=== PATIENT | female | born 1955 | race Caucasian/White ===

== ENCOUNTER 2017-11-28 09:56 | Observation (INO) | payer OTHER ==
[2017-11-28] MEDS ORDERED: NS 0.9% 1000 ML* 1,000 ML IV ONE (10:01)
--- NOTE | 2017-11-28 10:21 | RAD ---
HISTORY: Neurological changes, code rosenberg COMPARISONS: None TECHNIQUE: Multiple contiguous axial CT scans were obtained of the head without intravenous contrast. FINDINGS: HEMORRHAGE/INFARCT: There is no hemorrhage or acute infarct. MASSES/SHIFT: There is no mass or shift. EXTRA-AXIAL SPACES: There are no extra-axial fluid collections. SULCI AND VENTRICLES: The sulci and ventricles are normal in size and position for the patient's stated age. CEREBRUM: There are no focal parenchymal abnormalities. BRAINSTEM: There are no focal parenchymal abnormalities. CEREBELLUM: There are no focal parenchymal abnormalities. VESSELS: The vessels are grossly normal. PARANASAL SINUSES: The paranasal sinuses are clear. ORBITS: The orbits are unremarkable. BONES AND SOFT TISSUE: No bone or soft tissue abnormalities are noted. OTHER: None IMPRESSION: NO ACUTE INTRACRANIAL PATHOLOGY. PRELIMINARY FINDINGS WERE DISCUSSED WITH DR. RAMOS IN THE EMERGENCY DEPARTMENT AT APPROXIMATELY 10:17 AM ON NOVEMBER 28, 2017.
[2017-11-28 10:43] LABS: ABS Basophils 0.1 10^3/ul (0-0.2); ABS Eosinophils 0.2 10^3/ul (0-0.6); ABS Lymphocytes 2.1 10^3/ul (1.0-4.8); ABS Monocytes 0.5 10^3/ul (0-0.8); ABS Neutrophils 5.4 10^3/ul (1.5-7.7); ABS Nucleated RBC 0 10^3/ul; Eosinophil % 2.7 % (0-6); Hematocrit 43 % (35-47); Hemoglobin 14.6 g/dl (12.0-16.0); Lymphocyte % 25.4 % (25-47); Mean Corpuscular HGB Conc 34 g/dl (31-36); Mean Corpuscular Hemoglobin 29 pg (27-31); Mean Corpuscular Volume 85 fL (80-97); Nucleated Red Blood Cells % 0; Platelet Count 261 10^3/ul (150-450); Red Cell Distribution Width 14 % (10.5-15); White Blood Count 8.4 10^3/ul (3.5-10.8)
[2017-11-28 10:51] LABS: INR 1.23 (0.77-1.02)
[2017-11-28] MEDS ORDERED: Iohexol 350* (CONTRAST) 500 ML MDV IV ONE (11:22)
--- NOTE | 2017-11-28 11:29 | RAD ---
INDICATION: Neurologic change. Code bryson COMPARISON: November 12, 2015 TECHNIQUE: An AP portable view obtained at 1056 hours is submitted. FINDINGS: Bones/Soft Tissues: There are no acute bony findings. Cardiomediastinal: The correct silhouette is enlarged. There is mild vascular congestion with improvement Lungs: No focal consolidation. Pleura: There are no pleural effusions. Other: None IMPRESSION: ENLARGED CARDIAC SILHOUETTE. MILD VASCULAR CONGESTION WITH IMPROVEMENT.
[2017-11-28 11:36] LABS: Urine Appearance Clear; Urine Blood 1+ (Negative); Urine Color Straw; Urine Ketones Negative (Negative); Urine Protein Negative (Negative); Urine Specific Gravity 1.005 (1.010-1.030); Urine Urobilinogen Negative (Negative)
[2017-11-28] MEDS ORDERED: Carisoprodol TAB* 350 MG PO PRN (12:11)
[2017-11-28] MEDS ORDERED: traMADol TAB* 50 MG PO PRN (12:11)
--- NOTE | 2017-11-28 12:43 | RAD ---
HISTORY: Left-sided numbness COMPARISONS: Head CT dated November 28, 2017 TECHNIQUE: Multiple contiguous axial CT scans were obtained of the head and neck after the administration of nonionic intravenous contrast timed to the systemic arterial phase of contrast enhancement. Coronal and sagittal multiplanar reformations are submitted for review. Multiple 3-D maximum intensity projection reconstructions are also submitted for review. FINDINGS: CTA NECK: The study is limited by patient motion artifact. AORTIC ARCH: There is a normal three-vessel branching pattern of the aortic arch. There is no ostial or proximal stenosis of the cephalic great vessels. RIGHT VERTEBRAL ARTERY: The right vertebral artery is patent along its course, without stenosis. LEFT VERTEBRAL ARTERY: The left vertebral artery is patent along its course, without stenosis. DOMINANCE: The vertebral arteries are codominant. RIGHT COMMON CAROTID ARTERY: The right common carotid artery is patent. The right carotid bifurcation occurs at C3-C4. There is medial submucosal deviation of the right common carotid artery. RIGHT INTERNAL CAROTID ARTERY: There is atheromatous disease of the right carotid bifurcation, without right internal carotid artery stenosis by NASCET criteria. There is medial submucosal deviation of the proximal right internal carotid artery. RIGHT EXTERNAL CAROTID ARTERY: The right external carotid artery is unremarkable. LEFT COMMON CAROTID ARTERY: The left common carotid artery is patent. The left carotid bifurcation occurs at C3-C4. There is medial some mucosal deviation of the left common carotid artery. LEFT INTERNAL CAROTID ARTERY: There is atheromatous disease of the left carotid bifurcation, without left internal carotid artery stenosis by NASCET criteria. There is medial some mucosal deviation of the proximal left internal carotid artery. LEFT EXTERNAL CAROTID ARTERY: The left external carotid artery is unremarkable. VENOUS CIRCULATION: The venous system is unremarkable. SALIVARY GLANDS: The parotid glands, submandibular glands, sublingual glands are normal. NASAL CAVITY/NASOPHARYNX: The nasal cavity and nasopharynx are normal. ORAL CAVITY/OROPHARYNX: The oral cavity and oropharynx are unremarkable. LARYNGEAL APPARATUS/HYPOPHARYNX: The laryngeal apparatus and hypopharynx are normal. UPPER AIRWAY/UPPER ESOPHAGUS: The visualized upper airway and esophagus are normal. LUNG APICES: The lung apices are clear. THYROID GLAND: The thyroid gland is normal. LYMPH NODES: There is no lymphadenopathy by size criteria. BONES AND SOFT TISSUES: Degenerative changes are noted along the spine. CTA HEAD: INTRACRANIAL CIRCULATION: There is no aneurysm, vascular malformation, occlusion, or stenosis of the visualized intracranial circulation. The anterior communicating artery complex is clear. Bilateral posterior communicating arteries are identified. VENOUS CIRCULATION: The venous system is unremarkable. PERFUSION: There is no obvious parenchymal perfusion deficit. HEMORRHAGE/INFARCT: There is no hemorrhage or acute infarct. MASSES/SHIFT: There is no mass or shift. EXTRA-AXIAL SPACES: There are no extra-axial fluid collections. SULCI AND VENTRICLES: The sulci and ventricles are normal in size and position for the patient's stated age. CEREBRUM: There are no focal parenchymal abnormalities. BRAINSTEM: There are no focal parenchymal abnormalities. CEREBELLUM: There are no focal parenchymal abnormalities. PARANASAL SINUSES: The paranasal sinuses are clear. ORBITS: The orbits are unremarkable. BONES AND SOFT TISSUE: No bone or soft tissue abnormalities are noted. OTHER: There is no abnormal enhancement. IMPRESSION: 1. NO INTERNAL CAROTID ARTERY STENOSIS BY NASCET CRITERIA. 2. NO ANEURYSM, VASCULAR MALFORMATION, OCCLUSION, OR STENOSIS OF THE VISUALIZED INTRACRANIAL CIRCULATION.. CPT II Codes: 3100F
--- NOTE | 2017-11-28 15:30 | RAD ---
HISTORY: Stroke, left-sided weakness COMPARISONS: Head CT dated November 28, 2017, MRI dated August 16, 2010 TECHNIQUE: The following sequences were obtained of the head: Sagittal T1-weighted images, axial T2-weighted images, axial FLAIR images, axial susceptibility weighted images, axial T1-weighted images. Additionally, axial diffusion-weighted images were obtained with calculated apparent diffusion coefficients. FINDINGS: The study is technically limited secondary to patient body habitus. HEMORRHAGE/INFARCT: There is restricted diffusion consistent with subacute nonhemorrhagic infarct involving the precentral gyrus on the right measuring 1.1 cm in size. Elsewhere, there is no hemorrhage or acute infarct. MASSES/SHIFT: There is no mass or shift. EXTRA-AXIAL SPACES/MENINGES: There are no extra-axial fluid collections. SULCI AND VENTRICLES: The sulci and ventricles are normal in size and position for the patient's stated age. CEREBRUM: There is elevated T2/flair signal corresponding to the restricted diffusion within the right precentral gyrus. There is minimal encephalomalacia of the right precentral gyrus and left occipital lobe corresponding to the infarct described in 2009. BRAINSTEM: There are no focal parenchymal abnormalities. CEREBELLUM: There are no focal parenchymal abnormalities. The cerebellar tonsils are normal in size and position. SELLA: The sella is normal. PINEAL: The pineal region is clear. CP ANGLE/TEMPORAL BONES: The labyrinthine structures are grossly normal. VESSELS: Normal flow-voids are noted within the visualized vertebral vasculature. DIFFUSION ABNORMALITIES: As noted above, there is a focus of restricted diffusion within the precentral gyrus on the right on axial image 22. PARANASAL SINUSES/MASTOIDS: The paranasal sinuses are clear. ORBITS: The orbits are unremarkable. BONES AND SOFT TISSUE: No bone or soft tissue abnormalities are noted. OTHER: None IMPRESSION: THERE IS A SMALL FOCUS OF RESTRICTED DIFFUSION WITHIN THE CORTEX OF THE RIGHT PRECENTRAL GYRUS CONSISTENT WITH SUBACUTE NONHEMORRHAGIC INFARCT.
--- NOTE | 2017-11-28 15:47 | ED ---
Gaetano Spaulding Stephanie, scribed for Chester Ramos MD on 11/28/17 at 1012 . Neurological HPI - HPI Summary HPI Summary: The pt is a 62 y/o F presenting to the ED with c/o L handed weakness and numbness that began at 09:00. Symptoms include sparkly lights in vision field. The pt states she was unable to hold up her cup of water. Symptoms aggravated by nothing and alleviated by nothing. - History of Current Complaint Chief Complaint: EDNeurologicalDeficit Stated Complaint: LT SIDED NUMBNESS Time Seen by Provider: 11/28/17 10:00 Hx Obtained From: Patient Onset/Duration: Sudden Onset, Started hours ago - 2, Resolved Current Severity: Mild Character: Numbness/Tingling - L handed, Motor Weakness - L handed, unable to hold up a cup of water, Visual Changes - "sparkly lights" Aggravating: Nothing Alleviating: Nothing Associated Signs and Symptoms: Positive: Visual Changes - "sparkly lights" in vision field, Weakness - L handed, Numbness - L hand - Additional Pertinent History Primary Care Physician: DIPTI - Allergy/Home Medications Allergies/Adverse Reactions: Allergies Allergy/AdvReac Type Severity Reaction Status Date / Time allopurinol Allergy Unknown Verified 11/28/17 11:02 Reaction Details latex Allergy Itching Verified 11/28/17 11:02 Penicillins Allergy Unknown Verified 11/28/17 11:02 Reaction Details Sulfa (Sulfonamide Allergy Hives Verified 11/28/17 11:02 Antibiotics) BEE STINGS Allergy Intermediate Unknown Uncoded 12/18/16 14:27 Reaction Details Home Medications: Home Medications Dabigatran CAP(NF) [Pradaxa CAP(NF)] 150 mg PO BID 11/28/17 [History Confirmed 11/28/17] Dofetilide CAP* [Tikosyn CAP*] 500 mcg PO BID 11/28/17 [History Confirmed ] LORazepam TAB(*) [Ativan 1 MG TAB (*)] 1 mg PO BID PRN 11/28/17 [History Confirmed 11/28/17] Loperamide CAP* [Imodium CAP*] 6 mg PO DAILY 11/28/17 [History Confirmed ] Potassium Chlor TAB* [Klor Con ER TAB*] 10 meq PO DAILY 11/28/17 [History Confirmed 11/28/17] Sertraline* [Zoloft*] 25 mg PO DAILY 11/28/17 [History Confirmed 11/28/17] Spironolactone TAB* [Aldactone TAB*] 25 mg PO DAILY 11/28/17 [History Confirmed 11/28/17] PMH/Surg Hx/FS Hx/Imm Hx Endocrine/Hematology History: Denies: Hx Diabetes Cardiovascular History: Reports: Hx Hypertension - ON MEDS Denies: Hx Pacemaker/ICD Respiratory History: Reports: Hx Sleep Apnea - IN PROCESS OF BEING TESTED GI History: Reports: Hx Irritable Bowel - ISCHEMIC BOWEL/DIARRHEA History: Reports: Hx Kidney Stones Denies: Hx Dialysis, Hx Renal Disease Musculoskeletal History: Reports: Hx Arthritis - CHRONIC GOUTY ARTHRITIS, OSTEOARTHRITIS, Hx Back Problems - SPINAL STENOSIS-CERVICAL, Hx Gout, Other Musculoskeletal History - OBESITY, CARPAL TUNNEL SYNDROME Sensory History: Reports: Hx Contacts or Glasses Denies: Hx Hearing Aid Opthamlomology History: Reports: Hx Contacts or Glasses Psychiatric History: Reports: Hx Depression Denies: Hx Panic Disorder - Cancer History Hx Chemotherapy: No Hx Radiation Therapy: No - Surgical History Surgery Procedure, Year, and Place: 2007 HYSTERECTOMY [facility]. 2000 GALLBLADDER [facility] Hx Anesthesia Reactions: No Infectious Disease History: Denies: Traveled Outside the [place] in Last 30 Days - Family History Known Family History: Positive: Unknown - The pt is unaware of any fhx. - Social History Occupation: Employed Full-time Lives: Alone Alcohol Use: Rare Hx Substance Use: No Substance Use Type: Reports: None Hx Tobacco Use: No Smoking Status (MU): Never Smoked Tobacco Have You Smoked in the Last Year: No Review of Systems Negative: Fever Positive: Other - vision changes- "sparkly lights" in vision field Positive: Weakness - L handed, Numbness - L handed All Other Systems Reviewed And Are Negative: Yes Physical Exam - Summary Physical Exam Summary: General: well-appearing, no pain distress Skin: warm, color reflects adequate perfusion, dry Head: normal Eyes: EOMI, DANNY ENT: normal Neck: supple, nontender Respiratory: CTA, breath sounds present Cardiovascular: RRR Abdomen: soft, nontender Bowel: present Musculoskeletal: normal, strength/ROM intact Neurological: A&O x3, NIH score of 1, GCS score of 0, decreased sensation and mild weakness in L hand Psychological: affect/mood appropriate Triage Information Reviewed: Yes Vital Signs On Initial Exam: Initial Vitals Temp Pulse Resp BP Pulse Ox 98.1 F 61 18 122/52 99 11/28/17 10:09 11/28/17 10:09 11/28/17 10:09 11/28/17 10:09 11/28/17 10:09 Vital Signs Reviewed: Yes Diagnostics - Vital Signs Vital Signs Temp Pulse Resp BP Pulse Ox 11/28/17 12:00 64 99 11/28/17 11:30 55 23 152/84 97 11/28/17 11:10 23 11/28/17 10:38 96 11/28/17 10:30 19 133/92 11/28/17 10:14 75 97 11/28/17 10:12 122/52 11/28/17 10:09 98.1 F 61 18 122/52 99 - Laboratory Lab Results: Lab Results 11/28/17 11/28/17 11/28/17 Range/Units 10:05 10:20 10:20 WBC 8.4 (3.5-10.8) 10^3/ul RBC 5.00 (4.0-5.4) 10^6/ul Hgb 14.6 (12.0-16.0) g/dl Hct 43 (35-47) % MCV 85 (80-97) fL MCH 29 (27-31) pg MCHC 34 (31-36) g/dl RDW 14 (10.5-15) % Plt Count 261 (150-450) 10^3/ul MPV 8.0 (7.4-10.4) um3 Neut % (Auto) 64.5 (38-83) % Lymph % (Auto) 25.4 (25-47) % [place] % (Auto) 6.5 (0-7) % Eos % (Auto) 2.7 (0-6) % Baso % (Auto) 0.9 (0-2) % Absolute Neuts (auto) 5.4 (1.5-7.7) 10^3/ul Absolute Lymphs (auto) 2.1 (1.0-4.8) 10^3/ul Absolute Monos (auto) 0.5 (0-0.8) 10^3/ul Absolute Eos (auto) 0.2 (0-0.6) 10^3/ul Absolute Basos (auto) 0.1 (0-0.2) 10^3/ul Absolute Nucleated RBC 0 10^3/ul Nucleated RBC % 0 INR (Anticoag Therapy) 1.23 H (0.77-1.02) APTT 38.3 H (26.0-36.3) seconds Sodium (139-145) mmol/L Potassium Chloride (101-111) mmol/L Carbon Dioxide (22-32) mmol/L Anion Gap (2-11) mmol/L BUN (6-24) mg/dL Creatinine (0.51-0.95) mg/dL Est GFR ( Amer) (>60) Est GFR (Non-Af Amer) (>60) BUN/Creatinine Ratio (8-20) Glucose (70-100) mg/dL POC Glucose (mg/dL) (70-100) mg/dL Lactic Acid (0.5-2.0) mmol/L Calcium (8.6-10.3) mg/dL Total Bilirubin (0.2-1.0) mg/dL AST ALT (7-52) U/L Alkaline Phosphatase (34-104) U/L Troponin I (<0.04) ng/mL Total Protein (6.4-8.9) g/dL Albumin (3.2-5.2) g/dL Globulin (2-4) g/dL Albumin/Globulin Ratio (1-3) Triglycerides mg/dL Cholesterol mg/dL LDL Cholesterol mg/dL HDL Cholesterol mg/dL Urine Color Straw Urine Appearance Clear Urine pH 5.0 (5-9) Ur Specific Weare 1.005 L (1.010-1.030) Urine Protein Negative (Negative) Urine Ketones Negative (Negative) Urine Blood 1+ A (Negative) Urine Nitrate Negative (Negative) Urine Bilirubin Negative (Negative) Urine Urobilinogen Negative (Negative) Ur Leukocyte Esterase Negative (Negative) Urine WBC (Auto) Absent (Absent) Urine RBC (Auto) Trace(0-2/hpf) (Absent) Ur Squamous Epith Cells Present A (Absent) Urine Bacteria Absent (Absent) Urine Glucose Negative (Negative) Blood Type Antibody Screen 11/28/17 11/28/17 11/28/17 Range/Units 10:20 10:20 10:20 WBC (3.5-10.8) 10^3/ul RBC (4.0-5.4) 10^6/ul Hgb (12.0-16.0) g/dl Hct (35-47) % MCV (80-97) fL MCH (27-31) pg MCHC (31-36) g/dl RDW (10.5-15) % Plt Count (150-450) 10^3/ul MPV (7.4-10.4) um3 Neut % (Auto) (38-83) % Lymph % (Auto) (25-47) % [place] % (Auto) (0-7) % Eos % (Auto) (0-6) % Baso % (Auto) (0-2) % Absolute Neuts (auto) (1.5-7.7) 10^3/ul Absolute Lymphs (auto) (1.0-4.8) 10^3/ul Absolute Monos (auto) (0-0.8) 10^3/ul Absolute Eos (auto) (0-0.6) 10^3/ul Absolute Basos (auto) (0-0.2) 10^3/ul Absolute Nucleated RBC 10^3/ul Nucleated RBC % INR (Anticoag Therapy) (0.77-1.02) APTT (26.0-36.3) seconds Sodium 138 L (139-145) mmol/L Potassium TNP Chloride 105 (101-111) mmol/L Carbon Dioxide 25 (22-32) mmol/L Anion Gap 8 (2-11) mmol/L BUN 18 (6-24) mg/dL Creatinine 0.71 (0.51-0.95) mg/dL Est GFR ( Amer) 108.0 (>60) Est GFR (Non-Af Amer) 84.0 (>60) BUN/Creatinine Ratio 25.4 H (8-20) Glucose 100 (70-100) mg/dL POC Glucose (mg/dL) (70-100) mg/dL Lactic Acid 0.7 (0.5-2.0) mmol/L Calcium 9.6 (8.6-10.3) mg/dL Total Bilirubin 0.80 (0.2-1.0) mg/dL AST TNP ALT 20 (7-52) U/L Alkaline Phosphatase 79 (34-104) U/L Troponin I 0.00 (<0.04) ng/mL Total Protein 7.5 (6.4-8.9) g/dL Albumin 4.2 (3.2-5.2) g/dL Globulin 3.3 (2-4) g/dL Albumin/Globulin Ratio 1.3 (1-3) Triglycerides 110 mg/dL Cholesterol 172 mg/dL LDL Cholesterol 104 mg/dL HDL Cholesterol 46.2 mg/dL Urine Color Urine Appearance Urine pH (5-9) Ur Specific Weare (1.010-1.030) Urine Protein (Negative) Urine Ketones (Negative) Urine Blood (Negative) Urine Nitrate (Negative) Urine Bilirubin (Negative) Urine Urobilinogen (Negative) Ur Leukocyte Esterase (Negative) Urine WBC (Auto) (Absent) Urine RBC (Auto) (Absent) Ur Squamous Epith Cells (Absent) Urine Bacteria (Absent) Urine Glucose (Negative) Blood Type A Positive Antibody Screen Negative 11/28/17 11/28/17 Range/Units 10:37 12:00 WBC (3.5-10.8) 10^3/ul RBC (4.0-5.4) 10^6/ul Hgb (12.0-16.0) g/dl Hct (35-47) % MCV (80-97) fL MCH (27-31) pg MCHC (31-36) g/dl RDW (10.5-15) % Plt Count (150-450) 10^3/ul MPV (7.4-10.4) um3 Neut % (Auto) (38-83) % Lymph % (Auto) (25-47) % [place] % (Auto) (0-7) % Eos % (Auto) (0-6) % Baso % (Auto) (0-2) % Absolute Neuts (auto) (1.5-7.7) 10^3/ul Absolute Lymphs (auto) (1.0-4.8) 10^3/ul Absolute Monos (auto) (0-0.8) 10^3/ul Absolute Eos (auto) (0-0.6) 10^3/ul Absolute Basos (auto) (0-0.2) 10^3/ul Absolute Nucleated RBC 10^3/ul Nucleated RBC % INR (Anticoag Therapy) (0.77-1.02) APTT (26.0-36.3) seconds Sodium (139-145) mmol/L Potassium 4.0 Chloride (101-111) mmol/L Carbon Dioxide (22-32) mmol/L Anion Gap (2-11) mmol/L BUN (6-24) mg/dL Creatinine (0.51-0.95) mg/dL Est GFR ( Amer) (>60) Est GFR (Non-Af Amer) (>60) BUN/Creatinine Ratio (8-20) Glucose (70-100) mg/dL POC Glucose (mg/dL) 109 H (70-100) mg/dL Lactic Acid (0.5-2.0) mmol/L Calcium (8.6-10.3) mg/dL Total Bilirubin (0.2-1.0) mg/dL AST 18 ALT (7-52) U/L Alkaline Phosphatase (34-104) U/L Troponin I (<0.04) ng/mL Total Protein (6.4-8.9) g/dL Albumin (3.2-5.2) g/dL Globulin (2-4) g/dL Albumin/Globulin Ratio (1-3) Triglycerides mg/dL Cholesterol mg/dL LDL Cholesterol mg/dL HDL Cholesterol mg/dL Urine Color Urine Appearance Urine pH (5-9) Ur Specific Weare (1.010-1.030) Urine Protein (Negative) Urine Ketones (Negative) Urine Blood (Negative) Urine Nitrate (Negative) Urine Bilirubin (Negative) Urine Urobilinogen (Negative) Ur Leukocyte Esterase (Negative) Urine WBC (Auto) (Absent) Urine RBC (Auto) (Absent) Ur Squamous Epith Cells (Absent) Urine Bacteria (Absent) Urine Glucose (Negative) Blood Type Antibody Screen Result Diagrams: 11/28/17 10:20 11/28/17 12:00 Lab Statement: Any lab studies that have been ordered have been reviewed, and results considered in the medical decision making process. - Radiology CXR Radiology Interpretation Completed By: Radiologist - ENLARGED CARDIAC SILHOUETTE. MILD VASCULAR CONGESTION WITH IMPROVEMENT. - CT Brain CT Interpretation: Positive (See Comments) CT Interpretation Completed By: Radiologist - NO ACUTE INTRACRANIAL PATHOLOGY. PRELIMINARY FINDINGS WERE DISCUSSED WITH DR. RAMOS IN THE EMERGENCY DEPARTMENT AT APPROXIMATELY 10:17 AM ON NOVEMBER 28, 2017. ED physician has reviewed this report. CTA head CT Interpretation Completed By: Radiologist - 1. NO INTERNAL CAROTID ARTERY STENOSIS BY NASCET CRITERIA. 2. NO ANEURYSM, VASCULAR MALFORMATION, OCCLUSION, OR STENOSIS OF THE VISUALIZED INTRACRANIAL CIRCULATION.. ED physician has reviewed this report. CPT II Codes: 3100F - EKG 10:14 Cardiac Rate: Bradycardia EKG Rhythm: Sinus Bradycardia - [address] Segment: Normal Ectopy: None EKG Interpretation: Probable left ventricular hypertrophy NIH Scale - NIH Scale Level of Consciousness: Alert/Keenly Responsive Ask Patient the Month and His/Her Age: Both Correct Ask Pt to Open/Close Eyes and Press Tender Long Goods/Release Non-Paretic Hand: Both Correctly Best Gaze (Only Horizontal Eye Movement): Normal Visual Field Testing: No Visual Loss Facial Paresis-Pt to Smile & Close Eyes or Grimace Symmetry: Normal/Symmetrical Motor Function - Right Arm: No Drift-Holds 10 Seconds Motor Function - Left Arm: No Drift-Holds 10 Seconds Motor Function - Right Leg: No Drift-Holds 10 Seconds Motor Function - Left Leg: No Drift-Holds 10 Seconds Limb Ataxia-Must be out of Proportion to Weakness Present: Absent Sensory (Use Pinprick to Test Arms/Legs/Trunk/Face): Pinprick Less on Affected Best Language (Describe Picture, Name Items): No Aphasia Dysarthria (Read Several Words): Normal Extinction and Inattention: No Abnormality Total Score: 1 Re-Evaluation - Re-Evaluation First Eval Re-Evaluation Time: 11:22 Change: Unchanged - ED physician discussed plan of admission with the pt and the pt agrees with plan of admission. Course/Dx - Course Course Of Treatment: BP noted and advised to follow up with PCP. ED physician spoke to Dr. Mendez at 11:19. DR GONSALEZ SAW PATIENT IN ED. ADMIT HOSPITALIST. CRITICAL CARE TIME LESS THAN 30 MINUTES. - Diagnoses Provider Diagnoses: HTN (hypertension), CVA (cerebral vascular accident) - Physician Notifications Discussed Care Of Patient With: Laquita Gonsalez - Agrees to admit the pt. Time Discussed With Above Provider: 10:46 Instructed by Provider To: Admit As Inpatient Discharge - Sign-Out/Discharge Documenting (check all that apply): Discharge - Discharge Plan Condition: Stable Disposition: ADMITTED TO [facility] - Billing Disposition and Condition Condition: STABLE [place] [place] The documentation as recorded by the Gaetano escobar Stephanie accurately reflects the service I personally performed and the decisions made by me, Chester Ramos MD.
--- NOTE | 2017-11-28 18:04 | CONS ---
CC: Dr. Purcell: Dr. He; Dr. Hartley * NEUROLOGY CONSULTATION: DATE OF CONSULT: 11/28/17 REQUESTING PROVIDER: Dr. Lucas. PRIMARY CARE PHYSICIAN: Dr. Purcell. CLOSET BUILDER: Dr. He. NEUROLOGIST: Dr. Hartley. REASON FOR CONSULT: Code Wells. HISTORY OF PRESENT ILLNESS: Gissell Trotter is a 62-year-old woman with history of atrial fibrillation on Pradaxa, status post cardiac ablation in August as well as with a history of left hemispheric stroke in May 2017 while on warfarin who presented to the emergency department this morning with the onset of left hand dysfunction at around 9 a.m. She reports that she believes she woke up in her normal state of health this morning, though she does remark that she is thought to have bilateral carpal tunnel as well as cervical stenosis, which produces some chronic sensory symptoms as well as weakness in her hands bilaterally. This morning when she was outside about to go to work, she noticed that her left hand was not working normally. In the ER, she tells me that it is difficult to describe, but from the elbow down to her hand, the arms feels as though it might float away or that it is disconnected in some way. She also feels that the fingers of the left hand are not working as they normally do. She denies any initial difficulties with her face or her leg and no changes in her gait or vision. She has not noticed any changes in her speech , but as our evaluation progressed in the ER, she started to remark that her speech did seem slower, or like molasses, and that her lips started to feel a little bit numb. As mentioned, she is on Pradaxa and denies any missed doses recently and has taken it this morning. She just saw Dr. He 2 days ago and her Cardizem was stopped at that time. For the past several months she has been under increased stress and going through grief as she lost her mother rather suddenly in August secondary to brain cancer. As such, she recently started on Zoloft about 2 weeks ago. Given her recent stroke and these new onset symptoms, a Zuri Wells was called and neurology consultation was requested. Given the presence of Pradaxa, she is not a candidate for TPA. PAST MEDICAL HISTORY: 1. Atrial fibrillation, status post ablation. 2. Hypertension. 3. Gout. 4. Anxiety. 5. Sleep apnea, treated with CPAP. 6. Cervical stenosis. 7. Carpal tunnel syndrome. PAST SURGICAL HISTORY: Cardiac ablation. HOME MEDICATIONS: 1. Carvedilol 25 mg twice daily. 2. Tikosyn 500 mcg twice daily. 3. Valsartan 80 mg twice daily. 4. Pradaxa 150 mg twice daily. 5. Spironolactone 25 mg once daily. 6. Potassium chloride 10 mEq once daily. 7. Uloric 40 mg once daily. 8. Sertraline 25 mg once daily. 9. Loperamide three 2 mg tablets at nighttime. 10. Ativan 1 mg p.r.n. anxiety. 11. Carisoprodol 350 mg p.r.n. 12. Tramadol 50 mg p.r.n. pain. ALLERGIES: 1. ALLOPURINOL. 2. LATEX. 3. PENICILLIN. 4. SULFA. 5. BEES. FAMILY HISTORY: Mother passed from brain cancer recently. SOCIAL HISTORY: She works in [email or web address] at [employer]. She has an apartment in [place], but her brothers and [id number] as well as their children are in [place] and so she spends 3 to 4 days per week in [place] and then weekends in [place]. She does not have any children or a partner. She denies any substance use. REVIEW OF SYSTEMS: Negative aside from the HPI. PHYSICAL EXAM: Vital Signs: Temperature 98.1, blood pressure 133/92, heart rate 56, and oxygen saturation 96% on room air. General: She is a pleasant woman who is morbidly obese and intermittently tearful during our encounter. She provides a cogent and reliable history. Her heart is in regular rate and rhythm with no obvious murmurs. Lungs are clear to auscultation bilaterally. There are no carotid bruits. Her skin is intact. There is no joint swelling or erythema. On neurologic exam, she is fully awake alert and oriented. Her speech is fluent without dysarthria or aphasia. She was able to describe the pictures and name objects on the stroke cards without difficulty. Pupils were equal, round, and reactive from 3 to 2 mm bilaterally. Versions are full without nystagmus. Dickson are full to confrontation with no extinction to double simultaneous stimulation. Facial sensation and musculature is full and symmetric. Hearing is intact to voice. The palate elevates symmetrically and the tongue is midline. On motor examination, she has normal tone in the upper and lower extremities. She has diminished bulk in the right APB which is chronic. She has a possible, very mild upper motor neuron pattern weakness in the left arm as evidenced by some flexion of the fingers with her arms outstretched and eyes closed, but no clear pronation. Her strength is full in her extremities with the exception of her left ADM as well as finger flexors in the 4th and 5th digits, and she is unable to oppose the thumb and the pinky on the left hand. Her fine movements are also slower in the left hand and hand dramatic teacher is slightly weaker on that side as she has a difficult time flexing the 4th and 5th digits on the left hand. She has no sensory deficit in the hand and Tinel sign is negative at the elbow on the left. On sensory testing, pinprick is intact in the upper and lower extremities. Reflexes are 2+ in the right upper and lower extremities, 2 to 3+ in the left upper extremity, 2+ at the left knee and bilateral ankles with downgoing toes bilaterally. There was no extinction to double simultaneous stimulation. Finger- to-nose is intact without ataxia. I did not ambulate her at this time. DIAGNOSTIC STUDIES/LAB DATA: Her CBC is unremarkable. BMP is still pending, but her bedside glucose was 109. INR is 1.23 and PTT is 38.3. She had a noncontrast brain CT which was personally reviewed and was interpreted to show no acute intracranial pathology which I agree with. I question whether an old stroke is evident in the left parietal region, but I do not have access to the MRI scan which was done at [facility] or Dr. Hartley' s recent notes. IMPRESSION: Gissell Trotter is a 62-year-old woman with vascular risk factors including atrial fibrillation on Pradaxa, hypertension, sleep apnea treated with CPAP, morbid obesity and hypertension who presents to the emergency department with left hand dysfunction. While her exam suggests the possibility of a possible nerve root distribution of weakness on the left side, I also questioned whether she had some slight upper motor neuron weakness with some finger flexion with her hands outstretched with eyes closed and given her recent history of stroke as well as her multiple cardiovascular risk factors, we will have her come into the hospital for MRI scan of the brain as well as CT angiogram of the head and neck. In addition, the weakness in her hand is not in a single nerve distribution. If she has had a new stroke, we will have to question whether there is something else at play here such as a hypercoagulable state, though a complete workup for that will be challenging on anticoagulation. Alternatively, if her symptoms do not improve quickly and there is no evidence for stroke, then we can proceed with further workup with nerve conduction studies which would not need to be done as an inpatient. I will review the outpatient notes as the patient has recently seen Dr. Hartley after her stroke and I believe my office has complete records on that. At this time, we will continue her on her home medications. She is not a candidate for TPA secondary to the low NIH stroke scale as well as the presence of active anticoagulation. Thank you for this consultation. [id number]/[facility] #: [id number] HAYES
[2017-11-28] MEDS: LORazepam TAB(*) 1 MG PO PRN (20:16)
--- NOTE | 2017-11-28 20:49 | HP ---
CC: Dr. Purcell; Dr. He * HISTORY AND PHYSICAL: DATE OF ADMISSION: 11/28/17 PRIMARY CARE PROVIDER: Dr. Purcell. TRUCK RENTAL SERVICE ATTENDANT: Dr. He. ATTENDING PHYSICIAN: Dr. Cindy Mendez * (dictation provided by Tarah Ayala NP ). CHIEF COMPLAINT: Left hand weakness. HISTORY OF PRESENT ILLNESS: Ms. Trotter is a 62-year-old female with past medical history of atrial fibrillation, on Tikosyn and Pradaxa, followed by Dr. He as well as hypertension and report of stroke in May 2017, treated at [facility] without any residual deficits. Ms. Trotter states that she has been feeling in her normal state of health. She lives in both [place] and in [place] where she has an apartment as she works at [employer]. She reported that she was feeling well yesterday. This morning, when she awoke, she had feeling of weakness in her left hand. She notes a history of carpal tunnel and spinal stenosis, which can make her hands "feel odd" in the morning; however, this morning it felt different. She experienced weakness in her left forth and fifth finger. She feels no numbness or tingling. She has no other symptoms. She had no symptoms of aphasia or difficulty ambulating or double vision. She states that the feeling is unchanged since and persisted at this point of my examination. Prior to this, she had no chest pain, shortness of breath. No nausea, no diarrhea. No abdominal pain or any other complaint except for stress related to her stroke in May and recent of her mother from pancreatic/brain cancer. In the emergency room, Ms. Trotter had CT brain, which showed no acute abnormality , she went on for a CTA head and neck, which report is pending. Her labs showed no significant abnormalities. Urine is negative. EKG shows no evidence of ischemia. PAST MEDICAL HISTORY: 1. Atrial fibrillation, history of ablation, August 2017, on Tikosyn and Pradaxa. 2. Hypertension. 3. Gout. 4. History of cholecystectomy 10 years ago. 5. History of hysterectomy for heavy periods. 6. Kidney stones. MEDICATIONS: As outpatient are: 1. Dabigatran 150 mg p.o. b.i.d. 2. Febuxostat 40 mg p.o. daily. 3. Loperamide 6 mg p.o. daily. 4. Lorazepam 1 mg p.o. b.i.d. p.r.n. 5. Carisoprodol 350 mg p.o. at bedtime. 6. Carvedilol 25 mg p.o. b.i.d. 7. Tikosyn 500 mcg p.o. b.i.d. 8. Potassium chloride 10 mEq p.o. daily. 9. Sertraline 25 mg p.o. daily. 10. Spironolactone 25 mg p.o. daily. 11. Tramadol 50 to 100 mg p.o. q.6 hours p.r.n. 12. Valsartan 80 mg p.o. b.i.d. ALLERGIES: To ALLOPURINOL, LATEX, PENICILLIN, SULFA, and BEE STINGS. FAMILY HISTORY: The patient reports her mother had what was believed to be pancreatic cancer, but related to a brain tumor at age 87. Dad at 61 from a stroke, but also had history of heart attacks prior to that. She has two brothers, who are alive and well. Her sister related to a drunk driving accident. She lives alone and states her brother, Brandon, will be the healthcare proxy. SOCIAL HISTORY: There is no report of alcohol, tobacco, or drug use. She works at [employer]. PHYSICAL EXAMINATION GENERAL: Ms. Trotter was sitting on the bed. She is in no acute distress. She appears anxious and is crying during my examination. VITAL SIGNS: Temperature 98.1, pulse rate 64, respiratory rate 23, O2 saturation 99% on room air, blood pressure 152/84. LUNGS: Clear to auscultation bilaterally with no accessory muscle use and good aeration. HEART: S1, S2. No murmur, rub, or gallop, and regular. ABDOMEN: Soft and nontender with bowel sounds positive x4. EXTREMITIES: No cyanosis or edema. NEURO: She is alert, she is oriented x3. She moves all extremities equally and she has no ataxia with taxyuy-rn-[id number] or [id number]-wj-[id number]. She does have weakness in her fourth and fifth fingers on the left hand with adduction and abduction. 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 SKIN: Intact. DIAGNOSTIC STUDIES/LAB DATA: Sodium 138, potassium is pending, chloride 105, serum bicarbonate 25, BUN 18, creatinine 0.71, glucose 100, lactic acid 0.7. Troponin 0.00. WBC 8.4, hemoglobin 14.6, hematocrit 43, platelet count 261. Urine shows no evidence of infection. CT brain is read as follows: "No acute intracranial pathology." CTA head and neck is pending. Chest x-ray shows cardiomegaly with mild improvement in previously present vascular congestion. EKG shows sinus rhythm. No evidence of ischemia. ASSESSMENT AND PLAN: Ms. Trotter is a 62-year-old female with a past medical history of atrial fibrillation, on Tikosyn and Pradaxa, as well as a report of stroke in May 2017, managed at [facility], who presents to the hospital today with concern for weakness in her left fourth and fifth digits. Our plan is for observation in the hospital for the followin. Weakness in left hand: Concern is perhaps for a stroke, although her symptoms would be unusual for that. She does have very strong history. She has been evaluated by Dr. Kolb in the emergency room. Her CT brain is negative. Her head and neck CTA is pending. MRI of brain has been ordered. We will order lipid profile and hemoglobin A1c for a.m. to further assess her risk factor. She does have a history of hypertension. At this point, her blood pressure is well controlled. She had a previous echo at our hospital in 2016. Iff her MRI is positive, we will consider repeating that but I am not going to order that at this point. She will continue on her Pradaxa. 2. Hypertension: Continue valsartan and spironolactone. Continue carvedilol. 3. Depression and anxiety: Continue sertraline. I am going to hold Ativan for now as I think it may alter her neuro exam. 4. DVT prophylaxis with Pradaxa and SCDs. 5. Code status is full code. TIME SPENT: Approximately 60 minutes was spent on the admission of this patient , more than half the time was spent with patient at the bedside reviewing the events leading up to this hospitalization, performing physical examination, reviewing my plan of care. TARAH AYALA NP [id number]/[facility] #: [id number] HAYES
[2017-11-28] MEDS: CMCS: Dabigatran CAP(NF) 150 MG CAP PO SCH (21:06)
[2017-11-28] MEDS: Carvedilol TAB* 25 MG PO SCH (21:06)
[2017-11-28] MEDS: Valsartan TAB* 80 MG PO SCH (21:07)
[2017-11-28] MEDS: Dofetilide CAP* 500 MCG PO SCH (21:07)
[2017-11-29] MEDS ORDERED: Aspirin EC TAB* 81 MG TAB.EC PO SCH (09:00)
[2017-11-29] MEDS ORDERED: Spironolactone TAB* 25 MG PO SCH (09:00)
[2017-11-29] MEDS ORDERED: Sertraline* 25 MG TAB PO SCH (09:00)
[2017-11-29] MEDS ORDERED: Potassium Chlor TAB* 10 MEQ TAB.ER PO SCH (09:00)
[2017-11-29] MEDS: Carvedilol TAB* 25 MG PO SCH (10:07)
[2017-11-29] MEDS: Dofetilide CAP* 500 MCG PO SCH (10:08)
[2017-11-29] MEDS: CMCS: Dabigatran CAP(NF) 150 MG CAP PO SCH (10:08)
[2017-11-29] MEDS: Valsartan TAB* 80 MG PO SCH (10:09)
[2017-11-29] MEDS: LORazepam TAB(*) 1 MG PO PRN (11:04)
[2017-11-29] MEDS ORDERED: Atorvastatin* 20 MG TAB PO ONE (15:05)
[2017-11-29 16:51] VITALS: BP 121/62
--- NOTE | 2017-11-30 13:58 | DS ---
CC: Dr. Purcell; Dr. Sanjiv Carroll at [facility] * DISCHARGE SUMMARY: DATE OF ADMISSION: 11/28/17 DATE OF DISCHARGE: 11/29/17 PRIMARY CARE PROVIDER: Dr. Purcell. CARETAKER: Dr. He. ATTENDING FOR THIS ADMISSION: Dr. Cindy Mendez. ATTENDING FOR TODAY: Dr. Cindy Mendez.* (DICTATED BY NINA RICHARD NP) HOSPITAL COURSE: This is a 62-year-old female patient, who presented in the emergency department on the with complaints of numbness and tingling and some weakness in the left hand, primarily in the 4th and 5th fingers. She also said she had some weakness on that side and thinks just felt different. A significant note is the patient had a stroke back in May 2017 secondary to paroxysmal atrial fibrillation. She had an ablation in August, was placed on Tikosyn and Pradaxa and at that time, she had no residual stroke deficit and she has been doing well. The patient states that she had been taking her Pradaxa as ordered and did not make any other acute changes in her medication routine. Also of note, the patient explained that her tank cooper in [place] had at some point talked to her about putting in a Watchman device; however, she did not have that procedure. During her admission here, she had a CAT scan of the brain, head CTA, and MRI. MRI shows a small focus of restricted diffusion within the cortex of the right precentral gyrus consistent with subacute nonhemorrhagic infarct. The patient was seen by Neurology, Dr. Laquita Kolb, who recommended continued medical optimization. The patient was placed on statin low dose, 20 mg atorvastatin daily, baby aspirin 81 mg was added, and the patient was instructed to follow up with her primary care provider, her tank cooper, and her research geologist. PHYSICAL EXAMINATION: Vital signs on day of discharge: Temperature 97.9, heart rate 89, respiratory rate 14, satting at 99%, blood pressure 125/68. HEENT: The patient is atraumatic, normocephalic. PERRLA with nonicteric sclerae. Neck : Supple, nontender. No JVD noted. No carotid bruits auscultated. Lungs: Clear bilaterally to auscultation with no wheezing, rhonchi, or rales. Heart: Rate and rhythm are regular. She has S1, S2 present. No murmurs, gallops, or rubs. Abdomen: Soft, nontender, nondistended. Positive bowel sounds in all 4 quadrants. She is obese. She has no clubbing, no cyanosis, and no edema. Neurologic: She is currently grossly intact, moving all extremities well. Mdm Developer in the left hand is still weaker on that side, primarily localized to the left pinky however, but improved from yesterday's exam. Psychiatric: She is cooperative and appropriate; however, she is very tearful and states she has had some waxing and waning depression and anxiety both at home and during this admission. LABORATORY DATA: WBCs 8.4, RBCs 5.0, hemoglobin 14.6, hematocrit 43, platelets 261. Sodium 138, potassium 4.0, chloride 105, CO2 25, BUN 18, creatinine 0.71, GFR 84, glucose 100, A1c is 5.5, lactic acid 0.7, calcium 9.6. Bilirubin 0.8, AST 18, ALT 20, alk phos 79. Troponin is negative at 0.00. Total protein 7.5. Albumin 4.2, globulin 3.3. Triglycerides 110, cholesterol 172, LDL is 104, and HDL is 46.2. DISCHARGE DISPOSITION: The patient will be discharged to home. She is in stable condition. All questions were answered. The patient states her understanding of her medications at discharge and her followups. Followups are again with Dr. He, her tank cooper; Dr. Purcell, her primary care; and Dr. Carroll, her research geologist. The patient was also set up with an appointment with Dr. Kolb to be seen as an outpatient in her office. MEDICATIONS AT THE TIME OF DISCHARGE: Include: 1. Tramadol 50 mg q.6 hours as needed. 2. Aldactone 25 mg daily. 3. Imodium 6 mg daily. 4. Lorazepam 1 mg 2 times a day as needed. 5. Sertraline 25 mg daily. 6. K-Chlor 10 mEq daily. 7. Valsartan 80 mg 2 times a day. 8. Uloric 40 mg daily. 9. Tikosyn 500 mcg 2 times a day. 10. Pradaxa 150 mg 2 times a day. 11. Coreg 25 mg 2 times a day. 12. Soma 350 mg at bedtime as needed. 13. Atorvastatin 20 mg in the evening daily. 14. Baby aspirin 81 mg daily. Again, the patient was discharged in stable condition, all questions were answered, and the patient states her understanding of her followups. NINA RICHARD, EXTRUSION BENDER [id number]/[facility] #: [id number] HAYES
--- NOTE | 2017-11-30 13:58 | PN ---
CC: Dr. Purcell; Dr. He; Dr. Hartley * PROGRESS NOTE: DATE OF FOLLOWUP: 11/29/17 HISTORY: No acute overnight events. Ms. Trotter feels that her left hand function is a bit improved, but she is still having some aviation project engineer difficulties and still having difficulties opposing her pinky and thumb on the left side. She is significantly anxious regarding the new stroke which was shown on her MRI scan. We had a long discussion regarding the possible mechanisms of a stroke as well as continued workup and possible treatment options. MEDICATIONS: 1. Aspirin 81 mg daily. 2. Carisoprodol 350 mg p.r.n. 3. Carvedilol 25 mg twice daily. 4. Pradaxa 150 mg twice daily. 5. Tikosyn 500 mcg twice daily. 6. Lorazepam 1 mg twice daily as needed. 7. Potassium chloride 20 mEq daily. 8. Sertraline 25 mg daily. 9. Aldactone 25 mg daily. 10. Tramadol 50 mg q.6 p.r.n. 11. Valsartan 80 mg b.i.d. PHYSICAL EXAMINATION: Vital Signs: Temperature 97.9, blood pressure 125/68, heart rate 89, oxygen saturation 99% on room air. We stepped out of the patient 's room in order to have a majority of our discussion because she could not concentrate with the presence of her roommate who was having difficulty breathing and had a lot of nursing attention being given to her. On general exam, she is morbidly obese. Her heart is in a regular rate and rhythm. The lungs are clear to auscultation bilaterally. There are no carotid bruits. On neurologic examination, she is fully awake, alert, and oriented. Speech is clear. There is no aphasia. Versions are full without nystagmus. Dickson are full to confrontation. Facial sensation and musculature is full and symmetric. The palate elevates symmetrically and the tongue is midline. She has normal bulk and tone in the upper and lower extremities. There is no obvious pronator drift today. Her strength is full throughout with the exception of some weakness opposing the left thumb and pinky and with abduction of her left thumb. Her left aviation project engineer is also slightly weaker and there is just mild give in her left wrist flexor as well. There is no sensory deficit in the arms or legs. Reflexes are 2+ throughout. Her gait is narrow based and stable. DIAGNOSTIC STUDIES/LAB DATA: Her CBC is unremarkable. Her cholesterol panel shows triglycerides of 86, total cholesterol 161, LDL 99, HDL 44.4. Hemoglobin A1c is 5.5%. CT angiogram of the head and neck was personally reviewed and shows no significant evidence of atherosclerosis, no occlusion or significant stenosis. Her brain MRI was personally reviewed and shows a small area of diffusion restriction in the right precentral gyrus which corresponds with her symptoms. In addition, there is an old cortically based infarct in the left occipital lobe which was present back to a MRI scan in 2009. Interestingly, I do not note any FLAIR abnormality in the left temporal lobe which is the site of her stroke in May according to the MRI report from [facility] which I accessed through my office records earlier today. IMPRESSION: Gissell Trotter is a 62-year-old woman with morbid obesity, atrial fibrillation on Pradaxa, as well as sleep apnea treated with CPAP, who comes in with a small cortically based stroke in the right precentral gyrus. This occurs while compliant with her anticoagulation. She also had a stroke in May in a different vascular distribution. We discussed casting a wide net in terms of possible etiologies for these recurrent strokes and as such, will proceed with some blood work for possible hypercoagulable and/or inflammatory conditions which could predispose the stroke. We will check homocysteine, antiphospholipid antibodies, anticardiolipin antibodies, STAN, double-stranded DNA, ESR, rheumatoid factor, SSA and SSB antibodies and an ANCA panel. Her LDL is 99 and at this point, I think her goal should be less than 70 , so we will add atorvastatin 20 mg daily. At this point, I do not see a strong indication to change her anticoagulation to a different NOAC as I am not aware of any evidence that there is significant benefit to this. However, given the somewhat unclear mechanism of her recurrent strokes at this point, I will add low dose aspirin 81 mg daily. Finally, she is also under the care of the surgical pathologist, Dr. Carroll, in [place] and states that he had spoken with her about the watchman device. I spoke with Dr. He this afternoon and she will be in touch with Dr. Carroll to discuss this for the patient as well. This could be another possible treatment option for her. Since Dr. Hartley has seen her previously for her stroke in May in our office, she can follow up with him for this more recent stroke and potential treatment options going forward. [id number]/[facility] #: [id number] HAYES
== END 2017-11-29 18:03 | disposition home or self-care (01) ==
LOC: ED 09:56 → MEDTELE 12:29
PROVIDERS: ADMIT Hospitalist; ATTEND Hospitalist
DX: R20.0 Anesthesia of skin (principal); R53.1 Weakness; I48.0 Paroxysmal atrial fibrillation; Z88.0 Allergy status to penicillin; Z88.2 Allergy status to sulfonamides; Z88.8 Allergy status to other drugs, medicaments and biological substances; Z79.899 Other long term (current) drug therapy; M10.9 Gout, unspecified; I10 Essential (primary) hypertension; Z87.442 Personal history of urinary calculi; E66.01 Morbid (severe) obesity due to excess calories; G47.30 Sleep apnea, unspecified; G56.00 Carpal tunnel syndrome, unspecified upper limb; R00.1 Bradycardia, unspecified
CPT/HCPCS: 36415; 70450; 70496; 70498; 70551; 71045; 80053; 80061; 81003; 81015; 83036; 83090; 83516; 83605; 84484; 85025; 85610; 85652; 85730; 86038; 86147; 86225; 86235; 86431; 86850; 86900; 86901; 93005; 96360; 96361; 99285; A9270-GY; G0378; Q9967

== ENCOUNTER → 2019-02-16 11:21 | Day surgery (SDC) | payer OTHER ==
[~2019-02-16 11:21] MED LIST: Acetaminophen TAB* 325 MG ONE; Acetaminophen TAB* 325 MG PO ONE; Buffered Lidocaine 1% SYRIN* 1 ML/SYRINGE INTRADERM ONE; Clindamycin 600 MG/D5W BAG(*) 600 MG/50 ML BAG IV ONE; Iohexol 350 (CONTRAST) 200 ML MDV IV ONE; KETAMINE HCL* 50 MG/ML 10 ML VIAL ONE; Lidocaine 1% INJ* 10 MG/ML 30 ML SDV ONE; Lidocaine 2% PF * 5 ML VIAL ONE; Midazolam* 1 MG/ML 10 ML VIAL (10 MG) ONE; NS 0.9% 1000 ML** 1,000 ML IV SCH; Propofol* 10 MG/ML 20 ML BTL ONE; fentaNYL* 50 MCG/ML 5 ML VIAL (250 MCG VIAL) ONE
[2019-02-16 15:54] VITALS: BP 170/110
--- NOTE | 2019-02-16 18:09 | OP ---
CC: Dr. He; Dr. Scott Carroll at [facility]; Dr. Purcell * DATE OF OPERATION: 02/16/19 - [facility] DATE OF : 59 SURGEON: Dilshad Villalta MD ANESTHESIA: Local anesthesia with conscious sedation. PRE-OP DIAGNOSES: 1. Sick sinus syndrome. 2. Atrial fibrillation. POST-OP DIAGNOSES: 1. Sick sinus syndrome. 2. Atrial fibrillation. OPERATIVE PROCEDURE: Attempted dual-chamber pacemaker implantation. ESTIMATED BLOOD LOSS: Nil. 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 No pacemaker was implanted. INDICATIONS: The patient is a 63-year-old female with a history of paroxysmal atrial fibrillation, sick sinus syndrome, who is followed by Dr. He. The patient has had a pulmonary vein ablation procedure in the past. She has had a WATCHMAN procedure placed to her left atrial appendage. The patient has continued to have problems with AFib and bradycardia. Permanent pacemaker was recommended for maximization of medical therapy. DESCRIPTION OF PROCEDURE: The patient was in a fasting state. Informed consent had been obtained prior to the procedure. All labs had been reviewed. The patient was placed under anesthesia by Dr. Murphy. Time-out was done and completed. 1% lidocaine was used for local anesthesia. Under ultrasound guidance, the axillary vein was entered via Seldinger technique and a guidewire was placed. A 4 cm incision was made in the pectoral area and blunt dissection was carried down to the pectoral fascia. A pocket was fashioned for the pacemaker. A sheath was going to be placed over the guidewire in order for a pacemaker wire to be inserted. It was then noted that the guidewire was traversing down the left side of the chest wall to the left of the cardiac silhouette. There was no evidence of pulsatile flow when the venous access was gained, so I was fairly convinced that this was not an arterial structure. 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 There was no evidence that there were any structures passing across the midline, which a pacemaker could be inserted into. The patient already had a venous access to her right upper extremity. 10 cc of dye was injected into her right venous access. There was evidence of good venous flow up the right arm into an axillary vein and then down into a vein that appeared to go below the level of the tricuspid valve. There was no clear evidence that this venous structure drained into a right atrium. At that time, the decision was made that the patient had significant anomalous venous structure and that permanent pacemaker placement would not be an easy undertaking at this institution. The decision was made to close the wound on the left side and refer the patient back up to Electrophysiology at [facility] for consideration of permanent pacemaker given her anomalous venous return. [id number]/[facility] #: [id number] HAYES
== END | disposition home or self-care (01) ==
LOC: OR 11:21
PROVIDERS: ATTEND Specialist
DX: I49.5 Sick sinus syndrome (principal); I48.0 Paroxysmal atrial fibrillation; Q27.8 Other specified congenital malformations of peripheral vascular system; I10 Essential (primary) hypertension; G47.33 Obstructive sleep apnea (adult) (pediatric); M48.02 Spinal stenosis, cervical region; Z86.73 Personal history of transient ischemic attack (TIA), and cerebral infarction without residual deficits
CPT/HCPCS: 33208; A9270-GY; C1892; J2250; J2704; J3010

== ENCOUNTER 2019-11-10 13:28 | Emergency (ER) | payer OTHER ==
--- OUTSIDE RECORDS SUMMARY | 2019-11-10 13:36 | XMS REPORT | Continuity of Care Document ---
:1955 External Reference #:[id number] Author Name Karina He M.D. Address [address] [place] [address] Care Team Providers Name Role Phone Reno Chu MD - Rheumatology Care Team Information Spindle Tester [phone] Pablo Maurer MD - Clinical Care Team Information Spindle Tester [phone] Cardiac Electrophysiology Kaylin May DO - Family Care Team Information Spindle Tester Medicine Problems Active Problems Provider Date Atrial fibrillation Karina He M.D. Onset: 07/05/2014 Benign essential hypertension Karina He M.D. Onset: 07/05/2014 Chronic gouty arthritis Jorge Alberto Beard M.D. Onset: 05/18/2015 Eruption Jorge Alberto Beard M.D. Onset: 05/18/2015 Spinal stenosis Jorge Alberto Beard M.D. Onset: 05/18/2015 Diarrhea Jorge Alberto Beard M.D. Onset: 05/18/2015 Carpal tunnel syndrome Jorge Alberto Beard M.D. Onset: 05/18/2015 Paroxysmal atrial fibrillation Karina He M.D. Onset: 01/12/2016 Disturbance in sleep behavior Dayanna Heath MD Onset: 02/02/2016 Obesity Dayanna Heath MD Onset: 02/02/2016 Obstructive sleep apnea syndrome Verito Albert DNP, RN, [facility] Onset: Morbid obesity Verito Albert DNP, RN, [facility] Onset: 03/16/2016 Anxiety Verito Albert DNP, RN, [facility] Onset: 09/25/2016 Insomnia with sleep apnea Verito Albert DNP RN, [facility] Onset: 09/25/2016 Chronic pulmonary heart disease Karina He M.D. Onset: 12/13/2016 Essential hypertension Karina He M.D. Onset: 11/26/2017 Cardiac pacemaker in situ Karina He M.D. Onset: 04/16/2019 Congenital abnormality of vein Karina He M.D. Onset: 04/16/2019 Social History Type Date Description Comments Sex Unknown Tobacco Use Start: Unknown Never Smoked Cigarettes Smoking Status Reviewed: 11/09/19 Never Smoked Cigarettes ETOH Use Denies alcohol use Recreational Drug Use Denies Drug Use Tobacco Use Start: Unknown Patient has never smoked Exercise Type/Frequency Exercises sporadically Exercise Type/Frequency Walks sporadically Allergies, Adverse Reactions, Alerts Active Allergies Reaction Severity Comments Date Penicillin 07/05/2014 Latex 07/05/2014 Sulfa Antibiotics 07/05/2014 Bee Sting sob/chills/diaphoresis Severe 05/18/2015 Allopurinol vasculitis 09/13/2015 Adhesive Contact dermatitis Moderate 02/05/2019 Medications Active Medications SIG Qnty Indications Ordering Date Provider Metoprolol Succinate take 1 1/2 tablet 180tabs I48.91 Janki Pressley, ER twice daily N.P. 50mg Tablets ER 24HR Aldactone take 1 tab by 90tabs I48.0 Janki Pressley, 10/16/2016 25mg Tablets mouth daily N.P. Potassium Chloride ER 1 by mouth once 90caps I48.0 Karina He, 2015 daily M.D. 10Meq Capsules ER Tikosyn 1 by mouth twice 180caps Karina He, 12/20/2015 500mcg Capsules a day M.D. Uloric 1 every day 30tabs [id number].0710 Noemy Villegas, 05/18/2015 40mg Tablets OFFICE INSPECTOR Loperamide HCL 3 tablets daily Unknown 2mg for diarrhea Tablets Tramadol HCL 1-2 tablets every Unknown 50mg 6 hours as needed Tablets Epipen 2-David use as directed Unknown 0.3mg/0.3ML Solution Auto-Inject Carisoprodol 1/2-1 tablet by Unknown 350mg mouth as needed Tablets Cpap hs Unknown Device Pradaxa 1 cap by mouth 60caps Karina He, 150mg Capsules twice a day M.D. Lorazepam 1/2-1 by mouth Unknown 1mg Tablets once a day as needed Aspirin Adult Low 1 by mouth every Unknown Dose day 81mg Tablets DR Atorvastatin Calcium take 1 tablet at Unknown bedtime 20mg Tablets Zoloft 1 by mouth every Unknown 50mg Tablets day Immunizations Description No Information Available Vital Signs Date Vital Result Comment 11/09/2019 3:29pm Height 61 inches 5'1" Weight 268.00 lb Heart Rate 77 /min BP Systolic Sitting 132 mmHg Rue reg cuff BP Diastolic Sitting 94 mmHg Rue reg cuff Respiratory Rate 18 /min BMI (Body Mass Index) 50.6 kg/m2 Ejection Fraction 55-60% ECHO 05/21/2019 07/03/2019 10:59am Height 61 inches 5'1" Weight 266.25 lb Heart Rate 68 /min R. radial, irregular BP Systolic Sitting 128 mmHg Ra, lg cuff BP Diastolic Sitting 88 mmHg Ra, lg cuff BP Systolic Standing 118 mmHg Ra, lg cuff BP Diastolic Standing 92 mmHg Ra, lg cuff BMI (Body Mass Index) 50.3 kg/m2 Ejection Fraction 55-60% 05/21/19 Results Description No Information Available Procedures Date Code Description Status 11/09/2019 81000 EKG Tracing & Interpretation Completed 10/01/2019 28149 Icd Eval Sing,Dual,Multi Lead Remote Recpt Transm Tech Rev Completed Tech S 10/01/2019 98245 Icd Eval Sing,Dual,Multi Lead Remote Recpt Transm Tech Rev Completed Tech S 10/01/2019 17289 Pacemaker Check Remote Up To 90Days Single,Dual,Multiple Completed Lead 10/01/2019 21755 Pacemaker Check Remote Up To 90Days Single,Dual,Multiple Completed Lead 05/21/2019 70364 ECHO Transthoracic, Real-Time 2D With Doppler And Color Completed Flow 05/21/2019 38684 ECHO Transthoracic, Real-Time 2D With Doppler And Color Completed Flow Medical Devices Description No Information Available Encounters Type Date Location Provider Dx Diagnosis Office Visit 11/09/2019 [facility] Karina He, Z95.0 Presence of 3:20p Of Direct Care Specialist M.DMeg cardiac pacemaker I48.0 Paroxysmal atrial fibrillation R53.83 Other fatigue R73.9 Hyperglycemia, unspecified Office Visit 07/03/2019 11:00a [facility] Karina He I48.0 Paroxysmal atrial Of Direct Care Specialist AT [facility] M.D. fibrillation I49.5 Sick sinus syndrome Z95.0 Presence of cardiac pacemaker Z86.73 Prsnl hx of TIA (TIA), and cereb infrc w/o resid deficits Z79.01 long-term (current) use of anticoagulants Assessments Date Code Description Provider 11/09/2019 Z95.0 Presence of cardiac pacemaker Karina He M.D. 11/09/2019 I48.0 Paroxysmal atrial fibrillation Karina He M.D. 11/09/2019 R53.83 Other fatigue Karina He M.D. 11/09/2019 R73.9 Hyperglycemia, unspecified Karina He M.D. 10/01/2019 I49.5 Sick sinus syndrome Karina He M.D. 10/01/2019 I49.5 Sick sinus syndrome Remote Device Checks 10/01/2019 Z95.0 Presence of cardiac pacemaker Karina He M.D. 10/01/2019 Z95.0 Presence of cardiac pacemaker Remote Device Checks 07/03/2019 I48.0 Paroxysmal atrial fibrillation Karina He M.D. 07/03/2019 I49.5 Sick sinus syndrome Karina He M.D. 07/03/2019 Z95.0 Presence of cardiac pacemaker Karina He M.D. 07/03/2019 Z86.73 Personal history of transient ischemic attack Karina He M.D. 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 05/21/2019 I48.0 Paroxysmal atrial fibrillation Karina He M.D. 05/21/2019 I48.0 Paroxysmal atrial fibrillation [facility] ECHO Schedule 05/21/2019 I35.0 Nonrheumatic aortic (valve) stenosis Karina He M.D. 05/21/2019 I35.0 Nonrheumatic aortic (valve) stenosis [facility] ECHO Schedule Plan of Treatment Future Appointment(s):11/16/2019 1:30 pm - Karina He M.D. at [facility]11/16/2019 1:00 pm - [facility] Pacer Schedule at [facility]11/09/2019 - Karina He M.D.Z95.0 Presence of cardiac iqmglnyrqP49.0 Paroxysmal atrial fibrillationComments:ECG is NSR, good intervals in Tikosyn.Follow up:OV December or January with ECGR53.83 Other fatigueComments:If progresses instead resolves/improves call.R73.9 Hyperglycemia, unspecifiedComments:Mild.Minimize sweets and refined carbohydrates.No/low "white ", white flour, sugar, potatoes, rice...Ensure protien/fat with breakfast. Functional Status Description No Information Available Mental Status Description No Information Available Referrals Description No Information Available
--- OUTSIDE RECORDS SUMMARY | 2019-11-10 13:36 | XMS REPORT | Continuity of Care Document ---
:1955 External Reference #:[id number] Author Name Kaylin May DO Address [address] [place] [id number] Problems Active Problems Provider Date Obesity Onset: 06/04/2018 Cerebrovascular accident Onset: 12/01/2017 Aortic valve regurgitation Onset: 08/14/2017 Aortic valve stenosis Onset: 05/20/2017 Cervical spondylosis Onset: 08/07/2016 Pulmonary hypertension Onset: 04/09/2016 Hypertensive left ventricular hypertrophy Onset: 04/09/2016 Obstructive sleep apnea syndrome Onset: 03/23/2016 Chronic diarrhea Onset: 01/10/2015 Primary gout Onset: 11/02/2014 Atrial fibrillation Brandon Daniels MD Onset: 05/15/2019 Cardiac pacemaker in situ Brandon Daniels MD Onset: 05/15/2019 Social History Type Date Description Comments Sex Unknown Tobacco Use Start: Unknown Patient has never smoked Smoking Status Reviewed: 09/10/19 Patient has never smoked Allergies, Adverse Reactions, Alerts Active Allergies Reaction Severity Comments Date PCN No Reaction Indicated 05/08/2019 Sulfa No Reaction Indicated 05/08/2019 Allopurinol vaculititis Severe 05/08/2019 Latex No Reaction Indicated 05/08/2019 Bee Sting Flushing Moderate 09/10/2019 Medications Active Medications SIG Qnty Indications Ordering Date Provider Cpap Machine dispense one Kaylin 07/16/2019 machine. Lalo DO diagnosis héctor Carisoprodol Take 1 Tablet By 30tabs Brandon Daniels MD 06/09/2019 350mg Mouth AT Bedtime Tablets -- Maximum Daily Dose Of 1 Per Day Tramadol HCL 1 tab by mouth 40tabs Brandon Daniels MD 05/13/2019 50mg Tablets four times a day as needed Uloric 1 daily oral 90tabs Kaylin 04/09/2019 40mg Tablets Karnow, DO Sertraline HCL oral; take 1 90tabs [facility] 02/18/2019 50mg tablet by mouth Karnow, DO Tablets every day Atorvastatin Calcium oral; take 1 90tabs [facility] 12/16/2018 20mg tablet by mouth Karnow, DO Tablets daily. Metoprolol Succinate Oral; 75mg in Unknown 06/17/2018 ER the morning 50mg 50mg Tablets ER 24HR at night Dofetilide 1 twice daily Unknown 04/02/2018 500mcg Oral Capsules Losartan Potassium 1 daily Oral 30tabs Unknown 03/25/2018 25mg Tablets Epipen 2-David inj as directed 2units [facility] 01/08/2018 0.3mg/0.3ML injection Karnow, DO Solution Auto-Inject Lorazepam oral; take 1 60tabs [facility] 12/17/2017 1mg Tablets tablet by mouth Karnow, DO two times daily as needed Aspirin Ec 1 daily Oral 30tabs Unknown 12/02/[address] Encinas 1 twice daily 30caps Unknown 06/04/2017 150mg Capsules Oral Spironolactone 1 daily Oral Unknown 10/29/2016 25mg Tablets Immunizations CPT Code Status Date Vaccine Lot # [id number] Given 06/08/2019 Flu < 65 years [id number] Given 12/16/2018 Shingrix - Shingles vaccine, Herpes Zoster 10884 Given 10/28/2018 Tdap - Boostrix/Adacel 72107 Given 05/15/2018 Flu < 65 years 34710 Given 05/26/2017 Flu < 65 years 72446 Given 06/27/2016 Flu < 65 years Vital Signs Date Vital Result Comment 09/10/2019 3:53pm BP Systolic 128 mmHg BP Diastolic 76 mmHg Height 60 inches 5'0" Weight 272.00 lb Heart Rate 111 /min repeat 88 Body Temperature 96.8 F O2 % BldC Oximetry 98 % BMI (Body Mass Index) 53.1 kg/m2 06/08/2019 3:52pm BP Systolic 138 mmHg BP Diastolic 80 mmHg Height 60 inches 5'0" Weight 265.00 lb Heart Rate 78 /min Body Temperature 97.0 F O2 % BldC Oximetry 98 % BMI (Body Mass Index) 51.7 kg/m2 Results Test Acquired Date Facility Test Result H/L Range Note Comp Metabolic 09/10/2019 [facility] Sodium 137 mmol/L Normal 135-[address] [place] [address] [phone] Potassium 4.0 mmol/L Normal 3.5-5.0 Chloride 105 mmol/L Normal 101-111 Co2 Carbon Dioxide 27 mmol/L Normal 22-32 Anion Gap 5 mmol/L Normal 2-11 Glucose 142 mg/dL High 70-100 Blood Urea Nitrogen 15 mg/dL Normal 6-24 Creatinine 0.60 mg/dL Normal 0.51-0.95 BUN/Creatinine Ratio 25.0 High 8-20 Calcium 9.1 mg/dL Normal 8.6-10.3 Total Protein 6.9 g/dL Normal 6.4-8.9 Albumin 4.3 g/dL Normal 3.2-5.2 Globulin 2.6 g/dL Normal 2-4 Albumin/Globulin Ratio 1.7 Normal 1-3 Total Bilirubin 0.60 mg/dL Normal 0.2-1.0 Alkaline Phosphatase 109 U/L High 34-104 Alt 21 U/L Normal 7-52 Ast 20 U/L Normal 13-39 Egfr Non- 101.3 >60 Egfr 122.6 >60 2 Laboratory test 09/10/2019 [facility] Hemoglobin A1c 6.0 % High 4.0-5.[address] (Glyco HGB) [place] [address] [phone] Xray 06/08/2019 [facility] Mammography, <pending [address] Bilateral > [place] [address] [phone] 1 [id number] 2 Because ethnic data is not always readily available, this report includes an eGFR for both -Americans and non- Americans. The National Kidney Disease Education Program (NKDEP) does not endorse the use of the MDRD equation for patients that are not between the ages of 18 and 70, are , have extremes of body size, muscle mass, or nutritional status, or are non- or non-. According to the National Kidney Foundation, irrespective of diagnosis, the stage of the disease is based on the level of kidney function: Stage Description GFR(mL/min/1.73 m(2)) 1 Kidney damage with normal or decreased GFR 90 2 Kidney damage with mild decrease in GFR 60-89 3 Moderate decrease in GFR 30-59 4 Severe decrease in GFR 15-29 5 Kidney failure <15 (or dialysis) 3 Therapeutic target for the treatment of diabetes mellitus patients is <7% HBA1C, and in selective patients <6.0%. Please refer to [place] [employer] Association diabetic care guidelines for further information. Procedures Description No Information Available Medical Devices Description No Information Available Encounters Type Date Location Provider Dx Diagnosis Office Visit 09/10/2019 [facility] Main Kaylin May, DO Z00.01 Encounter for 3:45p general adult medical exam w abnormal findings M54.2 Cervicalgia R29.6 Repeated falls Z12.11 Encounter for screening for malignant neoplasm of colon Office Visit 06/08/2019 3:45p [facility] Main Kaylin May, F33.8 Other recurrent DO depressive disorders R73.03 Prediabetes Z68.43 Body mass index (BMI) 50.0-59.9, adult Z12.31 Encntr screen mammogram for malignant neoplasm of breast Z23 Encounter for immunization Assessments Date Code Description Provider 09/10/2019 Z00.01 Encounter for general adult medical Kaylin Karjeanne, DO examination with abnormal findings 09/10/2019 M54.2 Cervicalgia Kaylinlena May, DO 09/10/2019 R29.6 Repeated falls Kaylin May, DO 09/10/2019 Z12.11 Encounter for screening for malignant neoplasm Kaylin Gerardojeanne, DO of colon 06/08/2019 F33.8 Other recurrent depressive disorders Kaylin Karjeanne, DO 06/08/2019 R73.03 Prediabetes Kaylin Karnow, DO 06/08/2019 Z68.43 Body mass index (BMI) 50.0-59.9, adult Kaylin Cardenasw, DO 06/08/2019 Z12.31 Encounter for screening mammogram for Kaylin May, DO malignant neoplasm of breast 06/08/2019 Z23 Encounter for immunization Kaylin May, DO Plan of Treatment Future Appointment(s):12/03/2019 3:45 pm - Kaylin May, DO at [facility]05/2020 - Kaylin Karnow, DOZ00.01 Encounter for general adult medical examination with abnormal ryidliolU11.2 CervicalgiaNew Orders:Physical Therapy Evaluate And Treat, Ordered: 09/10/19Comments:keno terminal operator issue - will do PTR29.6 Repeated fallsComments:no evidence that this is related to cardiac or brain - but would benefit from PT to work on her gaitZ12.11 Encounter for screening for malignant neoplasm of colonComments:You are due for screening colonoscopy - we will send a referral You will likely need to meet with your labeler prior to the colonoscopy in order to discuss your medications - specifically concern for Pradaxa given that it is a blood thinner and you could need biopsies during the procedureReferral:[facility], Functional Status Description No Information Available Mental Status Description No Information Available Referrals Refer to Reason for Referral Status Appt Date [facility] routine screening Sent [address] [place] [phone]
--- OUTSIDE RECORDS SUMMARY | 2019-11-10 13:36 | XMS REPORT | Continuity of Care Document ---
:1955 External Reference #:[id number] Author Name Kaylin May DO Address [address] [place] [id number] Problems Active Problems Provider Date Obesity Onset: [...] in situ Brandon Daniels MD Onset: 05/15/2019 Inactive Problems Persistent atrial fibrillation Onset: 04/07/2019 Inactive: 04/07/2019 Adjustment disorder with mixed emotional features Onset: 04/07/2019 Inactive: 04/07/2019 Social History Type Date Description Comments Sex [...] Cpap Machine dispense one Kaylin 07/16/2019 machine. DO Lalo diagnosis héctor Carisoprodol Take 1 Tablet By 30tabs Brandon Daniels MD 06/09/2019 350mg Mouth AT Bedtime Tablets -- Maximum Daily Dose Of 1 Per Day Tramadol HCL 1 tab by mouth 40tabs Brandon Daniels MD 05/13/2019 50mg Tablets four times a day as needed Uloric 1 Daily Oral 90tabs Unknown 04/09/2019 40mg Tablets Sertraline HCL oral; take 1 90tabs Kaylin 02/18/2019 50mg tablet by mouth Karnow, DO Tablets every day Atorvastatin Calcium oral; take 1 90tabs Kaylin 12/16/2018 20mg tablet by mouth Karnow, DO Tablets daily. Metoprolol Succinate Oral; 75mg in Unknown 06/17/2018 ER the morning 50mg 50mg Tablets ER 24HR at night Dofetilide 1 twice daily Unknown 04/02/2018 500mcg Oral Capsules Losartan Potassium 1 daily Oral 30tabs Unknown 03/25/2018 25mg Tablets Epipen 2-David Inj Ud 1units Unknown 01/08/2018 0.3mg/0.3ML Injection Solution Auto-Inject Lorazepam Oral; Take 1 60tabs Unknown 12/17/2017 1mg Tablets Tablet By Mouth Two Times Daily as Needed Aspirin Ec 1 daily Oral 30tabs Unknown 12/02/[address] Encinas 1 twice daily 30caps Unknown 06/04/2017 150mg Capsules Oral Spironolactone 1 daily Oral Unknown 10/29/2016 25mg Tablets Immunizations CPT Code Status Date Vaccine Lot # [id number] Given 06/08/2019 Flu < 65 years [id number] Given 12/16/2018 Shingrix - Shingles vaccine, Herpes Zoster 21698 Given 10/28/2018 Tdap - Boostrix/Adacel 02164 Given 05/15/2018 Flu < 65 years 23277 Given 05/26/2017 Flu < 65 years 24630 Given 06/27/2016 Flu < 65 years Vital [...] Result H/L Range Note Comp Metabolic 09/10/2019 [facility] Sodium 137 mmol/L Normal 135-145 [address] [place] [address] [phone] Potassium 4.0 mmol/L Normal 3.5-5.0 Chloride 105 [...] Egfr 122.6 >60 2 Laboratory test 09/10/2019 [facility] Hemoglobin A1c 6.0 % High 4.0-5.[address] ([employer] H[employer]) [place] [address] [phone] Xray 06/08/2019 [facility] Mammography, <pending [address] Bilateral > [place] [address] [phone] 1 [id number] 2 Because ethnic data is not always [...] in selective patients <6.0%. Please refer to [employer] diabetic care guidelines for further information. Procedures Date Code Description Status 09/10/2019 67549 Brief Emotional/Behav Assessment W/ Scoring Doc Per Completed Standard Inst Medical Devices Description No Information Available Encounters Type Date Location Provider Dx Diagnosis Office Visit 06/08/2019 [facility] Kaylin May, DO F33.8 Other recurrent 3:45p depressive disorders R73.03 Prediabetes Z68.43 Body mass index (BMI) 50.0-59.9, adult Z12.31 Encntr screen mammogram for malignant neoplasm of breast Z23 Encounter for immunization Assessments Date Code Description Provider 09/10/2019 Z00.00 Encounter for general adult medical Kaylin May, DO examination without abnormal findings 09/10/2019 M54.2 Cervicalgia Kaylin Karnokory, DO 09/10/2019 R29.6 Repeated falls Kaylin Karnokory, DO 09/10/2019 Z12.11 Encounter for screening for malignant neoplasm Kaylin May DO of colon 06/08/2019 F33.8 Other recurrent depressive disorders Kaylin Karnokory, DO 06/08/2019 R73.03 Prediabetes Kaylin Karjeanne, DO 06/08/2019 Z68.43 Body mass index (BMI) 50.0-59.9, adult Kaylinlena May, DO 06/08/2019 Z12.31 Encounter for screening mammogram for Kaylin Karnokory, DO malignant neoplasm of breast 06/08/2019 Z23 Encounter for immunization Kaylin May DO Plan of Treatment Future Appointment(s):12/03/2019 3:45 pm - Kaylin May DO at [facility] Main05/2020 - Kaylin May DOZ00.00 Encounter for general adult medical examination without abnormal findingsComments:Due for mammo - she has order, just needs to get it doneUTD on papGot flu shotWaiting for second shingles vaccinesUTD on tetanusDue for colon cancer screening we will follow up in 3 months to check about her mood. sooner if zfykefF16.2 CervicalgiaNew Orders: Physical Therapy Evaluate And Treat, Ordered: 09/10/19Comments:mcc issue - will do PTR29.6 Repeated fallsComments:no evidence that this is related to cardiac or brain - but would benefit from PT to work on her gaitZ12.11 Encounter for screening for malignant neoplasm of colonComments:You are due for screening colonoscopy - we will send a referral You will likely need to meet with your client support analyst prior to the colonoscopy in order to discuss your medications - specifically concern for Pradaxa given that it is a blood thinner and you could need biopsies during the procedureReferral:[facility], Functional Status Description No Information Available Mental Status Description No Information Available Referrals Refer to Dr Reason for Referral Status Appt Date [facility] routine screening Sent [address] [place] [phone]
[2019-11-10 14:14] VITALS: BP 132/71
--- NOTE | 2019-11-10 16:12 | UC ---
Complaint Female HPI - HPI Summary HPI Summary: 64-year-old female presenting with dysuria, urgency, and frequency since last night. States she also noticed pink color on the tissue when she wiped earlier this morning. Notes lower abdominal discomfort. Denies nausea or vomiting. Denies flank pain. Denies fever and chills. Patient states she was treated approximately 2 weeks ago for a UTI and states symptoms fully resolved for about 10 days. Does not recall which antibiotic she was placed on. - History Of Current Complaint Chief Complaint: UCGU Stated Complaint: URINARY ISSUE Hx Obtained From: Patient Pain Intensity: 2 Pain Scale Used: 0-10 Numeric - Allergies/Home Medications Allergies/Adverse Reactions: Allergies Allergy/AdvReac Type Severity Reaction Status Date / Time adhesive Allergy Unknown Verified 11/10/19 14:14 Reaction Details allopurinol Allergy Unknown Verified 11/10/19 14:14 Reaction Details latex Allergy Itching Verified 11/10/19 14:14 Penicillins Allergy Unknown Verified 11/10/19 14:14 Reaction Details Perfume [Fragrance] Allergy Unknown Verified 11/10/19 14:14 Reaction Details Sulfa (Sulfonamide Allergy Hives Verified 11/10/19 14:14 Antibiotics) BEE STINGS Allergy Intermediate Unknown Uncoded 11/10/19 14:14 Reaction Details Home Medications: Home Medications Dabigatran CAP(NF) [Pradaxa CAP(NF)] 150 mg PO BID 11/28/17 [History Confirmed 11/10/19] Dofetilide CAP* [Tikosyn CAP*] 500 mcg PO BID 11/28/17 [History Confirmed ] Sertraline* [Zoloft*] 50 mg PO QPM 11/28/17 [History Confirmed 11/10/19] Spironolactone TAB* [Aldactone TAB 25 MG*] 25 mg PO QAM 11/28/17 [History Confirmed 11/10/19] Aspirin EC TAB* [Ecotrin EC Low Dose 81 MG*] 81 mg PO QPM 07/09/18 [History Confirmed 11/10/19] Atorvastatin* [Lipitor 20 MG*] 20 mg PO QPM 07/09/18 [History Confirmed 11/10/19 ] Febuxostat [Uloric] 40 mg PO QPM 07/10/18 [History Confirmed 11/10/19] Potassium Chlor TAB* [Klor Con ER TAB 10 MEQ*] 10 meq PO QPM 07/10/18 [History Confirmed 11/10/19] Carisoprodol TAB* [Soma TAB*] 350 mg PO BEDTIME PRN 01/21/19 [History Confirmed 11/10/19] LORazepam [Ativan 1 MG TAB] 1 mg PO DAILY PRN 01/21/19 [History Confirmed ] Loperamide CAP* [Imodium CAP*] 6 - 8 mg PO QPM 01/21/19 [History Confirmed 11/09] Metoprolol Succinate XL TAB* [Toprol XL TAB*] 75 mg PO BID 01/21/19 [History Confirmed 11/10/19] traMADol TAB* [Ultram*] 50 mg PO Q6HR PRN 01/21/19 [History Confirmed 11/10/19] EPINEPHrine [Epipen 2-David] 0.3 mg IM ONCE PRN MDD 1 01/22/19 [History Confirmed 11/10/19] Cyanocobalamin TAB* [Vitamin B12 TAB*] 100 mcg PO QPM 02/11/19 [History Confirmed 11/10/19] Nitrofurantoin Monohyd/M-Cryst [Macrobid 100 mg Capsule] 100 mg PO BID #14 cap 11/10/19 [Rx] Pantoprazole TAB * [Protonix TAB*] 1 tab PO DAILY PRN 11/10/19 [History Confirmed 11/10/19] PMH/Surg Hx/FS Hx/Imm Hx Cardiovascular History: Hypertension - Surgical History Surgical History: Yes Surgery Procedure, Year, and Place: 2007 HYSTERECTOMY [facility]. 2000 GALLBLADDER [facility]. KIDNEY STONE SURGERY-2013. heart ablasion - Family History Known Family History: Positive: Unknown - The pt is unaware of any fhx. - Social History Alcohol Use: Rare Substance Use Type: None Smoking Status (MU): Never Smoked Tobacco Have You Smoked in the Last Year: No - Immunization History Most Recent Influenza Vaccination: FALL 2014 Most Recent Tetanus Shot: UP TO DATE Most Recent Pneumonia Vaccination: NEVER Review of Systems All Other Systems Reviewed And Are Negative: Yes Constitutional: Positive: Negative Respiratory: Positive: Negative Cardiovascular: Positive: Negative Gastrointestinal: Positive: Abdominal Pain - "lower abd discomfort" Genitourinary: Positive: Dysuria, Frequency, Urgency Musculoskeletal: Positive: Negative Neurological/Mental Status: Positive: Negative Physical Exam Triage Information Reviewed: Yes Appearance: Well-Appearing, No Pain Distress, Obese Vital Signs: Initial Vital Signs Temp 98.1 F 11/10/19 14:08 Pulse 70 11/10/19 14:08 Resp 18 11/10/19 14:08 BP 132/71 11/10/19 14:08 Pulse Ox 97 11/10/19 14:08 Lab Results 11/10/19 Range/Units 15:37 POC Urine Color Yellow POC Urine Clarity Cloudy POC Urine pH 5.5 (5-9) POC Ur Specif [place] 1.015 (1.010-1.030) POC Urine Protein Negative (Negative) POC Ur Glucose (UA) Negative (Negative) POC Urine Ketones Negative (Negative) POC Urine Blood 2+ A (Negative) POC Urine Nitrite Negative (Negative) POC Urine Bilirubin Negative (Negative) POC Urine Urobilinogen 0.2 (Negative) POC U Leukocyte Esteras 3+ A (Negative) Vital Signs Reviewed: Yes Eyes: Positive: Conjunctiva Clear ENT: Positive: Hearing grossly normal Neck: Positive: Supple Respiratory: Positive: No respiratory distress, No accessory muscle use Abdomen Description: Positive: Nontender, Soft. Negative: CVA Tenderness (R), CVA Tenderness (L) Neurological: Positive: Alert Psychological: Positive: Age Appropriate Behavior Skin Exam: Normal Complaint Female Dx - Course Course Of Treatment: UA positive for leuks and blood. I treated patient with Macrobid due to sulfa and penicillin allergy. Patient also unsure if she is allergic to cephalosporins but states her penicillin allergy makes it difficult for her to breathe. I instructed to treat symptoms with Pyridium and increase fluid intake. Instructed to follow up with PCP for persistent or recurrent symptoms. Instructed to go to ED with any new or worsening symptoms. Patient voiced understanding and agreed with the treatment plan. - Differential Dx/Diagnosis Provider Diagnosis: UTI (urinary tract infection) Discharge ED - Sign-Out/Discharge Documenting (check all that apply): Patient Departure All imaging exams completed and their final reports reviewed: No Studies - Discharge Plan Condition: Stable Disposition: HOME Prescriptions: Nitrofurantoin Monohyd/M-Cryst [Macrobid 100 mg Capsule] 100 mg PO BID #14 cap Patient Education Materials: Urinary Tract Infection in Women (ED) Referrals: Kaylin May DO [Primary Care Provider] - If Needed Additional Instructions: As discussed, take Macrobid for treatment of your UTI. You may also take over the counter Azo as needed for symptomatic relief. Increase your fluid intake. Follow up with your PCP if symptoms do not resolve. Go to emergency room with any new or worsening symptoms. - Billing Disposition and Condition Condition: STABLE Disposition: Home
== END 2019-11-10 16:15 | disposition home or self-care (01) ==
LOC: UCEAST 13:28
DX: N39.0 Urinary tract infection, site not specified (principal); I10 Essential (primary) hypertension; Z88.0 Allergy status to penicillin; Z88.2 Allergy status to sulfonamides; Z88.8 Allergy status to other drugs, medicaments and biological substances; Z91.09 Other allergy status, other than to drugs and biological substances; Z91.040 Latex allergy status; Z91.030 Bee allergy status; Z79.899 Other long term (current) drug therapy; Z79.82 Long term (current) use of aspirin
CPT/HCPCS: 81003; 87086; 99212; G0463